=== PATIENT | female | born 1950 | race Hispanic/Latino ===

== ENCOUNTER 2025-11-11 21:11 | Emergency (ER) | payer OTHER ==
[~2025-11-11] VITALS: Ht 144.8 cm; Wt 110.7 kg
[2025-11-11 21:44] LABS: IMMATURE GRANULOCYTE ABSOLUTE 0.03 K/uL (0-1); NUCLEATED RED BLOOD CELLS 0.0 % (0.0-0.19); PLATELET COUNT (AUTO) 276 K/uL (130-400); RED BLOOD CELL COUNT(AUTO) 3.85 MIL/uL (4.00-5.50); RED CELL DISTRIBUTION WIDTH 12.8 % (11.0-15.5); WHITE BLOOD COUNT (AUTO) 7.7 K/uL (4.8-10.8)
[2025-11-11 21:55] LABS: CREATININE 1.1 mg/dL (0.5-1.0); GLOMERULAR FILTR. RATE CALC 52.0 mL/min (>90); GLUCOSE,RANDOM 153.0 mg/dL (70-105); SODIUM SERUM 139.0 mmol/L (136-145); UREA NITROGEN, BLOOD 25.0 mg/dL (7-18)
--- NOTE | 2025-11-11 22:37 | ERN ---
ED Note History of Present Illness Stated Complaint: CHEST TIGHTNESS AND PALPITATIONS Chief Complaint: Palpitations Time Seen by MD: 21:41 Dictation: This is a 75-year-old female who presented to the emergency room with multiple complaints that started around mid day today chest tightness and she felt palpitations all the way up to her neck intermittently. She was just basically sitting when she started experiencing this and she also reported some occasional shortness of breath and her legs were swollen. She stated that she went to [place] on a bus trip of almost 20 hours and came back couple of days ago. Since then she has been experiencing these symptoms she saw her PCP who actually referred her to a manager latin for an echocardiogram also. No history of any other cardiac symptoms before. No syncope presyncope. No diaphoresis no hemoptysis She does have a history of ovarian cancer but details are not clear Temperature 98 pulse 77 respirations 18 blood pressure 163/71 with a pulse oximetry of 99% on room air Chronic problems include hypertension hypercholesterolemia and ovarian cancer Allergies: Coded Allergies: No Known Drug Allergies (Unverified Allergy, Unknown, 11/11/25) Past Medical History Past Medical History: Cancer (History of ovarian cancer), High Cholesterol, Hypertension Surgical History: Hysterectomy, Cholecystectomy Family History: Negative Social History: Negative History: Not Applicable RN Note Reviewed/Agreed w/PFSH: Yes Review of System Dictation Constitutional: Negative for fever,chills, and weight loss Eyes: Negative for injury, pain,redness, and discharge ENT: Negative for injury,pain or swelling Cardiovascular: Positive for chest pain, palpitations, and edema Respiratory: Negative for shortness of breath, cough, and wheezing, Abdomen/GI: Negative for abdominal pain, nausea, vomiting, diarrhea, and constipation Back: Negative for injury and pain : Negative for injury, bleeding and discharge MS/Extremity: Negative for injury and deformity Skin: Negative for rash, and discoloration Neuro: Negative for headache, weakness, numbness, tingling, and seizure Psych: Negative for suicide ideation, homicidal ideation, and hallucinations Initial Vital Sign VS Vital Signs Date Time Temp Pulse Resp B/P (MAP) Pulse Ox O2 Delivery O2 Flow Rate FiO2 11/11/25 21:17 98.1 77 18 163/71 99 Room Air 0 11/11/25 22:55 21 Physical Exam Dictation General: awake, alert, NAD Head/Face: Normocephalic, atraumatic Eyes: PERRL, EOMI, vision at baseline ENT: oral cavity clear, TMs clear, no signs of infection Neck: Trachea midline, supple, no nuchal rigidity Cardiovascular: RRR, normal S1/S2, No MRGs, no JVD Respiratory: CTAB, no respiratory distress, No rales or wheezes Abdomen: Soft, non-tender, non-distended, normal bowel sounds, no guarding or rebound. Skin: Warm, dry, normal turgor, no rash MS/Extremity: Pulses equal, no cyanosis, neurovascular intact, FROM Neuro: COAx4, GCS 15, strength 5/5, CN 2-12 intact, normal cerebellar exam, normal gait, Psych: Normal behavior, mood, and affect normal Extremities-mild edema without any palpable cords, Homans sign is negative Results (Laboratory/Radiology) Laboratory/Radiology Laboratory Tests Test 11/11/25 21:39 White Blood Count 7.7 K/uL (4.8-10.8) Red Blood Count 3.85 MIL/uL (4.00-5.50) L Hemoglobin 11.4 g/dL (12.0-16.0) L Hematocrit 34.2 % (36-48) L Mean Corpuscular Volume 88.8 fL (79-99) Mean Corpuscular Hemoglobin 29.6 pg (27.0-33.0) Mean Corpuscular Hemoglobin Concent 33.3 g/dL (32.0-36.0) Red Cell Distribution Width 12.8 % (11.0-15.5) Platelet Count 276 K/uL (130-400) Mean Platelet Volume 9.2 fL (7.5-10.5) Immature Granulocyte % (Auto) 0.4 % (0-1) Neutrophils (%) (Auto) 66.5 % (40.0-77.0) Lymphocytes (%) (Auto) 20.8 % (21.0-51.0) L Monocytes (%) (Auto) 8.4 % (3.0-13.0) Eosinophils (%) (Auto) 3.5 % (0.0-8.0) Basophils (%) (Auto) 0.4 % (0.0-5.0) Neutrophils # (Auto) 5.2 K/uL (1.8-7.7) Lymphocytes # (Auto) 1.6 K/uL (1.0-4.8) Monocytes # (Auto) 0.7 K/uL (0.1-1.0) Eosinophils # (Auto) 0.27 K/uL (0.00-0.70) Basophils # (Auto) 0.03 K/uL (0.00-0.20) Absolute Immature Granulocyte (auto 0.03 K/uL (0-1) Nucleated Red Blood Cells 0.0 % (0.0-0.19) Sodium Level 139 mmol/L (136-145) Potassium Level 3.0 mmol/L (3.5-5.1) *L Chloride Level 104 mmol/L (101-111) Carbon Dioxide Level 26 mmol/L (21-32) Blood Urea Nitrogen 25 mg/dL (7-18) H Creatinine 1.1 mg/dL (0.5-1.0) H Glomerular Filtration Rate Calc 52 mL/min (>90) Random Glucose 153 mg/dL (70-105) H Total Calcium 9.5 mg/dL (8.5-10.1) Troponin I High Sensitivity 9 ng/L (4-50) B-Type Natriuretic Peptide 51 pg/mL (0-100) Labs Reviewed?: Yes CT Scan Comment: 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 Shortness of breath. TECHNIQUE: Postcontrast thin collimated axial CTA images of the chest were obtained with sagittal and coronal reformatted images also submitted. CT scan is done according to ALARA (As Low as Reasonably Achievable). COMPARISON: Chest radiograph dated 11/11/2025. FINDINGS: 0.8 cm ground glass density perifissural nodule on the right side (series 3, image 21). 0.7 cm right middle lobe pulmonary nodule (series 3, image 30). A few smaller pulmonary nodules are present in the bilateral lung schroeder. Mosaic attenuation and areas of air trapping in the bilateral lung schroeder, suggesting small airway disease. Mild subsegmental atelectasis in the bilateral lung bases. No pleural effusion or pneumothorax. No pericardial effusion. Mild cardiomegaly. Calcific atherosclerotic disease in the thoracic aorta and coronary arteries. No thoracic aortic aneurysm. The pulmonary artery is normal caliber and measures up to 2.7 cm in diameter. No filling defect or pulmonary thromboembolism is evident. 1.0 x 1.1 cm enlarged perivascular lymph node in the anterior mediastinum. Tiny hiatus hernia. Incidental thyroid nodules, recommend ultrasound correlation. Status post cholecystectomy. Punctate calcified granuloma in the right hepatic lobe. No acute bony abnormality is evident. Mild degenerative osseous changes. IMPRESSION: No pulmonary thromboembolism. No thoracic aortic aneurysm. Pulmonary nodules. Recommended follow-up CT chest at 6 months. Mosaic attenuation and areas of air trapping in the bilateral lung schroeder, suggesting small airway disease. Mild subsegmental atelectasis in the bilateral lung bases. Tiny hiatus hernia. 1.0 x 1.1 cm enlarged perivascular lymph node in the anterior mediastinum. Incidental thyroid nodules, recommend ultrasound correlation. Comparison with the prior chest radiograph would be difficult due to technical limitations and differences. /[place] DICTATED BY: EFREM DINH Jr., MD DATE: 11/12/25312 ELECTRONICALLY SIGNED BY: EFREM DINH Jr., MD DATE: 11/12/25312 ED Course ED Course Orders Procedure Category Date Status Time 12 Lead Ekg Tracing- EKG 11/11/25 Logged Technical 21:27 Cbc With Differential LAB 11/11/25 Complete 21:27 Basic Metabolic Panel LAB 11/11/25 Complete 21:27 Troponin I High LAB 11/11/25 Complete Sensitivity 21:27 B-Type Natriuretic LAB 11/11/25 Complete Peptide 21:27 Chest 1vw RAD 11/11/25 Resulted 22:35 Potassium Bicarb/Cit PHA 11/11/25 Complete Ac 25meq (K-Lyte Ta 23:00 Ct Chest Pe Protocol CT 11/12/25 Resulted Wwo Cont 00:07 Current Medications Medications (Trade) Dose Ordered Sig/Radhames Route PRN Reason Start Time Stop Time Status Last Admin Dose Admin Potassium Bicarbonate (K-Lyte Tablet Eff 25 Meq Tablet.eff) 50 meq ONCE ONCE PO 11/11/25 23:00 11/11/25 23:01 DC 11/11/25 23:51 Vital Signs Date Time Temp Pulse Resp B/P (MAP) Pulse Ox O2 Delivery O2 Flow Rate FiO2 11/12/25 01:55 83 19 144/69 97 Room Air* 0 21 11/12/25 00:35 84 21 152/70 96 Room Air* 0 21 11/11/25 23:55 70 20 145/61 97 Room Air* 0 21 11/11/25 22:55 98.1 70 19 145/81 97 Room Air* 0 21 11/11/25 21:17 98.1 77 18 163/71 99 Room Air 0 HEART Score Response (Comments) Value History: Low suspicion (0) 0 EKG: Normal 0 Age: > 65yrs (+2) 2 Initial Troponin: Normal limit (0) 0 HEART Score Risk: Low Risk for MACE (1-3) Total 2 Medical Decision Making MDM Differential diagnosis: Unstable angina, ACS, PE Esophagitis, gastroesophageal reflux disease, hiatal hernia, gastritis, pericarditis, costochondritis, pleurisy This is a 75-year-old female who presented to the emergency room with multiple complaints that started around mid day today chest tightness and she felt palpitations all the way up to her neck intermittently. She was just basically sitting when she started experiencing this and she also reported some occasional shortness of breath and her legs were swollen. She stated that she went to [place] on a bus trip of almost 20 hours and came back couple of days ago. Since then she has been experiencing these symptoms she saw her PCP who actually referred her to a manager latin for an echocardiogram also. No history of any other cardiac symptoms before. No syncope presyncope. No diaphoresis no hemoptysis She does have a history of ovarian cancer but details are not clear Temperature 98 pulse 77 respirations 18 blood pressure 163/71 with a pulse oximetry of 99% on room air Chronic problems include hypertension hypercholesterolemia and ovarian cancer Labs reviewed CBC showed a white count of 7.7 hemoglobin 11.4 platelets 276 brain natriuretic peptide is 51. BNP 7 is significant for a potassium of 3 BUN and creatinine are 25 and 1.1 with a glucose of 150 chest x-ray is negative for any acute infiltrate. 3:[address] scan of the chest with a PE protocol finally has been resulted and there is no evidence of any pulmonary embolus noted. Updated the patient and she stated that she would like to be discharged to home to spend holiday with the family. Rationale: Tests considered and ordered secondary to shared decision making include: Labs chest x-ray and a CT scan of the chest with a PE protocol Previous outside records reviewed: Old ER visits. Risk of complication and/or morbidity or mortality of patient management: None Medications-Per medication reconciliation Need for hospitalization: Patient does not meet criteria for hospitalization. Need for emergency major/minor surgery: No There are no social concerns with this patient. Prescription drug management Prescriptions will include symptomatic care Patient's prior external medical records from other ER visits were reviewed by me as indicated. Prior testing and results from previous visits were reviewed. Prior tests were taken into account with medical decision making and resource utilization, independent historian/historians were used to obtain complete medical history. I independently interpreted the test that were performed, results were reviewed by me and considered findings on radiology if ordered. Medical management and examination interpretation discussions were had by me with other qualified healthcare professionals as indicated for the patient's care. Problem List Problem List: (1) Atypical chest pain (2) Hypertension (3) Palpitations (4) Hypokalemia DX & DISP Disposition: Discharge Departure Impression: Primary Impression: Atypical chest pain Additional Impressions: Palpitations, Hypokalemia, Hypertension Condition: Stable Additional Instructions: Patient and the caregiver have been informed of all the diagnostic tests and the imaging conducted during the today's visit to the emergency room and has verbalized understanding of the results I have personally reviewed and interpreted all diagnostic exams performed here in the ER today as well as the vital signs documented by the nursing staff. The patient is now being discharged to home and should follow up with the primary care physician or the specialist as directed by the ER staff. 1 schedule a follow-up appointment; call your primary care physician's office on the next business day to set up a follow-up appointment. 2. Monitor symptoms; if your symptoms worsen return to the emergency room immediately. 3. Return to school/work; you may return to work or school in 2 days or as directed by your primary care physician. 4. Manage pain and fever; take [id number] Tylenol or Advil for pain or fever if there are no contraindications follow the recommended dosage instructions. 5. Stay well hydrated; drink plenty of oral fluids to stay hydrated. 6. Take prescribed medications; take any medications prescribed in the emergency room as directed bring them with you to your primary care physician visit for possible adjustments. 7. Complete medication course; finish the entire course of medication as prescribed even if you start feeling better. Do not have any leftover medication unless instructed otherwise. 8. Follow up on culture results; if a urine culture and wound culture was ordered in the emergency room please follow-up with your primary care physician within 2-3 days to review the culture and sensitivity report for appropriate antibiotic therapy adjustments. 9. Resume home medications; you may resume taking your home medications unless instructed otherwise. MIGUEL ANGEL FELIX MD Nov 11, 2025 22:37
--- NOTE | 2025-11-11 22:47 | NUR ---
PT CARE ASSUMED AT THIS TIME
--- NOTE | 2025-11-12 00:13 | HMCIMG ---
EXAM: CR Chest, 1 View. CLINICAL HISTORY: palpitations chest tightness COMPARISON: None provided. FINDINGS: LUNGS: The lungs show no infiltrate or other acute finding. PLEURAL SPACES: No pleural effusion or pneumothorax. MEDIASTINUM: The cardiomediastinal silhouette is within normal limits. Aortic knob calcification. Unfolding of the aorta and calcific changes in the descending thoracic aorta. BONES: No acute osseous abnormality. IMPRESSION: No acute cardiopulmonary pathology is evident. /[place]
--- NOTE | 2025-11-12 02:13 | HMCIMG ---
EXAM: CTA examination of the chest CLINICAL HISTORY: Palpitations. Shortness of breath. TECHNIQUE: Postcontrast thin collimated axial CTA images of the chest were obtained with sagittal and coronal reformatted images also submitted. CT scan is done according to ALARA (As Low as Reasonably Achievable). COMPARISON: Chest radiograph dated 11/11/2025. FINDINGS: 0.8 cm ground glass density perifissural nodule on the right side (series 3, image 21). 0.7 cm right middle lobe pulmonary nodule (series 3, image 30). A few smaller pulmonary nodules are present in the bilateral lung schroeder. Mosaic attenuation and areas of air trapping in the bilateral lung schroeder, suggesting small airway disease. Mild subsegmental atelectasis in the bilateral lung bases. No pleural effusion or pneumothorax. No pericardial effusion. Mild cardiomegaly. Calcific atherosclerotic disease in the thoracic aorta and coronary arteries. No thoracic aortic aneurysm. The pulmonary artery is normal caliber and measures up to 2.7 cm in diameter. No filling defect or pulmonary thromboembolism is evident. 1.0 x 1.1 cm enlarged perivascular lymph node in the anterior mediastinum. Tiny hiatus hernia. Incidental thyroid nodules, recommend ultrasound correlation. Status post cholecystectomy. Punctate calcified granuloma in the right hepatic lobe. No acute bony abnormality is evident. Mild degenerative osseous changes. IMPRESSION: No pulmonary thromboembolism. No thoracic aortic aneurysm. Pulmonary nodules. Recommended follow-up CT chest at 6 months. Mosaic attenuation and areas of air trapping in the bilateral lung schroeder, suggesting small airway disease. Mild subsegmental atelectasis in the bilateral lung bases. Tiny hiatus hernia. 1.0 x 1.1 cm enlarged perivascular lymph node in the anterior mediastinum. Incidental thyroid nodules, recommend ultrasound correlation. Comparison with the prior chest radiograph would be difficult due to technical limitations and differences. /[place]
[2025-11-12 03:33] VITALS: BP 138/62; PULSE 71; RESP 16; TEMP 98; O2SAT 97
[2025-11-12] MEDS ORDERED: IOHEXOL-350 75 ML VIAL IV ONE (07:30)
--- NOTE | 2025-11-12 08:47 | EKG ---
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
== END 2025-11-12 03:49 | disposition home or self-care (01) ==
LOC: EDH 21:11
DX: R07.89 Other chest pain (principal); R00.2 Palpitations; E87.6 Hypokalemia; I10 Essential (primary) hypertension; E78.00 Pure hypercholesterolemia, unspecified; Z85.43 Personal history of malignant neoplasm of ovary; Z90.49 Acquired absence of other specified parts of digestive tract; Z90.710 Acquired absence of both cervix and uterus
CPT/HCPCS: 99285; 71045; 84484; 80048; 83880; 85025; 36415; 93005; 71270; Q9967